=== PATIENT | male | born 1985 | race American Indian/Alaskan Native ===

== ENCOUNTER 2020-11-11 06:32 | Emergency (ER) | payer SELFPAY ==
--- NOTE | 2020-11-11 06:44 | Event Note ---
ED Screening Note ED Screening Note: 35-year-old -[place] male was in police custody when he sustained an injury to his right elbow resulting in pain and deformity. He was taking to the long-term to be processed and they decided to release him so that he can go seek treatment of the elbow. EMS was notified and arrived on scene to bring him to the emergency department this occurred about 1 or 2 hours ago This initial assessment/diagnostic orders/clinical plan/treatment(s) is/are subject to change based on patients health status, clinical progression and re- assessment by fellow clinical providers in the ED. Further treatment and workup at subsequent clinical providers discretion. Patient/guardian urged not to elope from the ED as their condition may be serious if not clinically assessed and managed. Initial orders include: X-ray of the elbow
[2020-11-11 06:49] VITALS: BP 150/97
--- NOTE | 2020-11-11 07:23 | XRay Report ---
RIGHT ELBOW 5 VIEW(S) INDICATION / CLINICAL INFORMATION: pain and deformity COMPARISON: None available. FINDINGS: BONES / JOINT(S): No acute fracture or subluxation. No significant arthritis. Evaluation for joint ef fusion is limited due to suboptimal lateral view. SOFT TISSUES: There is soft tissue swelling about the elbow. No soft tissue gas or opaque foreign bod y. ADDITIONAL FINDINGS: None. IMPRESSION: No acute osseous findings of the right elbow detected. Evaluation for joint effusion is limited due t o suboptimal lateral view. Signer Name: Perfecto Soto MD Signed: 11/11/2020 7:19 AM Workstation Name: [id number]
--- NOTE | 2020-11-11 07:40 | Emergency Department Report ---
ED Upper Extremity Inj HPI - General Chief Complaint: Extremity Injury, Upper Stated Complaint: POSS DISLOCATED ELBOW Time Seen by Provider: 11/11/20 07:35 Source: patient, EMS Mode of arrival: Ambulatory Limitations: Physical Limitation - History of Present Illness Initial Comments: Patient is a 35-year-old male presents emergency department for evaluation of injury to right elbow sustained when he was struck in the arm with a wrench last night. Patient complaining of mild dull constant pain to the area associate with swelling. - Related Data Allergies Allergy/AdvReac Type Severity Reaction Status Date / Time banana Allergy Swelling Verified 11/11/20 06:44 watermelon Allergy Swelling Verified 11/11/20 06:44 ED Review of Systems ROS: Stated complaint: POSS DISLOCATED ELBOW Other details as noted in HPI Comment: All other systems reviewed and negative ED Past Medical Hx - Past Medical History Previous Medical History?: Yes Hx Psychiatric Treatment: Yes (PTSD) Hx Asthma: Yes Additional medical history: c-spine chronic pain - Surgical History Past Surgical History?: No - Social History Smoking Status: Current Every Day Smoker Substance Use Type: None ED Physical Exam - General Limitations: No Limitations, Physical Limitation General appearance: alert, in no apparent distress - Head Head exam: Present: atraumatic, normocephalic - Eye Eye exam: Present: normal appearance - ENT ENT exam: Present: mucous membranes moist - Neck Neck exam: Present: normal inspection - Respiratory Respiratory exam: Present: normal lung sounds bilaterally. Absent: respiratory distress - Cardiovascular Cardiovascular Exam: Present: regular rate, normal rhythm - GI/Abdominal GI/Abdominal exam: Present: soft, normal bowel sounds - Rectal Rectal exam: Present: deferred - Extremities Exam Extremities exam: Present: other (Swelling and tenderness to distal right lateral upper arm, full extension and flexion of right elbow, full pronation and supination without discomfort or limitation.) - Back Exam Back exam: Present: normal inspection - Neurological Exam Neurological exam: Present: alert, oriented X3 - Psychiatric Psychiatric exam: Present: normal affect, normal mood - Skin Skin exam: Present: warm, dry, intact, normal color. Absent: rash ED Course Vital Signs 11/11/20 06:40 Temperature 99.2 F Pulse Rate 79 Respiratory 16 Rate Blood Pressure 150/97 O2 Sat by Pulse 99 Oximetry - Reevaluation(s) Reevaluation #1: 11/11/20 07:43 Patient seemingly with contusion on exam without obvious osseous injury on exam or by radiography, advised to follow-up with PMD or orthopedics in the next 1 to 2 days for reevaluation. ED Medical Decision Making - Lab Data Vital Signs 11/11/20 06:40 Temperature 99.2 F Pulse Rate 79 Respiratory 16 Rate Blood Pressure 150/97 O2 Sat by Pulse 99 Oximetry - Radiology Data Radiology results: report reviewed [facility] [address] [place] [address] XRay Report Signed Patient: TRAVON MARR MR#: [id number] : 1985 Acct:[id number] Age/Sex: 35 / M ADM Date: 11/11/20 Loc: ED Attending Dr: Ordering Physician: JONE ERICKSON Date of Service: 11/11/20 Procedure(s): XR elbow 3+V RT Accession Number(s): [id number] cc: JONE ERICKSON Fluoro Time In Minutes: RIGHT ELBOW 5 VIEW(S) INDICATION / CLINICAL INFORMATION: pain and deformity COMPARISON: None available. FINDINGS: BONES / JOINT(S): No acute fracture or subluxation. No significant arthritis. Evaluation for joint effusion is limited due to suboptimal lateral view. SOFT TISSUES: There is soft tissue swelling about the elbow. No soft tissue gas or opaque foreign body. ADDITIONAL FINDINGS: None. IMPRESSION: No acute osseous findings of the right elbow detected. Evaluation for joint effusion is limited due to suboptimal lateral view. Signer Name: Geeta Soto MD Signed: 11/11/2020 7:19 AM Workstation Name: [id number] Transcribed By: JS Dictated By: GEETA SOTO MD Electronically Authenticated By: GEETA SOTO MD Signed Date/Time: 11/11/20718 DD/ 6 TD/TT: Critical care attestation.: If time is entered above; I have spent that time in minutes in the direct care of this critically ill patient, excluding procedure time. ED Disposition Clinical Impression: Injury of right elbow Disposition: DC-01 TO HOME OR SELFCARE Is pt being admited?: No Condition: Stable Additional Instructions: Follow-up with primary care doctor in 1 to 2 days for reevaluation. For persistent discomfort follow-up with an orthopedist may be indicated, information provided. Follow-up with emergency department for worsening symptoms or inability to follow-up otherwise. Referrals: PRIMARY CARE, [Primary Care Provider] - 3-5 Days HERIBERTO BALLARD MD [Staff Physician] - 3-5 Days
== END 2020-11-11 07:52 | disposition home or self-care (01) ==
LOC: ED 06:32
DX: S59.901A Unspecified injury of right elbow, initial encounter (principal); J45.909 Unspecified asthma, uncomplicated; F17.200 Nicotine dependence, unspecified, uncomplicated; Z91.018 Allergy to other foods; X58.XXXA Exposure to other specified factors, initial encounter; Y93.89 Activity, other specified; Y92.89 Other specified places as the place of occurrence of the external cause; Y99.8 Other external cause status
CPT/HCPCS: 99283